=== PATIENT | female | born 1995 ===

== ENCOUNTER 2022-07-18 15:00 | Outpatient (CLI) | payer OTHER ==
[2022-07-19 18:32] LABS: BACTERIAL VAGINOSIS DNA POSITIVE (NEGATIVE); CANDIDA GLABRATA DNA NEGATIVE (NEGATIVE); CANDIDA GROUP DNA POSITIVE (NEGATIVE); CANDIDA KRUSEI DNA NEGATIVE (NEGATIVE); TRICHOMONAS VAGINALIS DNA NEGATIVE (NEGATIVE)
[2022-07-19 19:13] LABS: CHLAMYDIA TRACHOMATIS DNA NEGATIVE (NEGATIVE); NEISSERIA GONORRHOEAE DNA NEGATIVE (NEGATIVE)
== END 2022-07-18 23:45 | disposition home or self-care (01) ==
LOC: LAB.WC 15:00
PROVIDERS: ATTEND Obstetrics & Gynecology
DX: Z11.3 Encounter for screening for infections with a predominantly sexual mode of transmission (principal); N89.8 Other specified noninflammatory disorders of vagina
CPT/HCPCS: 81514; 87491; 87591; 87661; 87801

== ENCOUNTER 2022-07-26 11:12 | Outpatient (CLI) | payer OTHER ==
[2022-07-26 13:51] LABS: HCT - HEMATOCRIT 32.5 % (37.0-47.0); HGB - HEMOGLOBIN 10.8 g/dL (12.0-16.0); MEAN CORPUSCULAR HEMOGLOBIN 30.4 pg (27.0-31.0); MEAN CORPUSCULAR HGB CONC 33.2 g/dL (32.0-36.0); MEAN CORPUSCULAR VOLUME 91.5 fL (81.0-99.0); MEAN PLATELET VOLUME 9.1 fL (7.9-10.8); RED BLOOD COUNT 3.55 10^6/uL (4.20-5.40); RED CELL DISTRIBUTION WIDTH 12.7 % (12.0-15.0); WHITE BLOOD COUNT 7.9 x10^3/uL (4.8-10.8)
--- NOTE | 2022-07-27 08:35 | Ultrasound Report ---
PROCEDURE: OB F/U or Repeat INDICATIONS: SUPERVISION OF OUTSIDE/PRIOR DATING DATA: Last menstrual period (LMP): 12/02/2021. LMP-based estimated date of delivery (DOMI): 09/08/2022. First dating scan (date and location): 03/04/2022. Estimated date of delivery (DOMI) from first dating scan: 09/06/2022. The below data below was generated using the study generated DOMI of 09/06/2022 TECHNIQUE: Real-time scanning was performed of the fetus, with image documentation and biometric measurements. Endovaginal scanning: Not indicated COMPARISON: None. FINDINGS: General: A single living intrauterine gestation is present. Presentation: Cephalic Placenta: Placental position is posterior, without previa. Amniotic fluid index: 13.5 cm, normal for gestational age. heart rate: 137 beats per minute. Maternal cervical canal: Not evaluated. biometrics: Biparietal diameter: 9.0 cm, 36 weeks, 2 days. Head circumference: 31.4 cm, 35 weeks, 1 day. Abdominal circumference: 30.2 cm, 34 weeks, 1 day. Femur length: 6.0 cm, 31 weeks, 2 days. Estimated gestational age from initial scan: 34 weeks, 0 day. Composite gestational age from present scan: 34 weeks, 2 days. Estimated weight and percentile: 2242 g, 32.7%. Measurement variability in biometric dating: +/- 10 days from 12-20 weeks gestation, +/- 2 weeks from 20-30 weeks gestation, +/- 3 weeks at 30 weeks gestation or more. Other: chest, stomach, bilateral kidneys and urinary bladder are visualized and are within norm al limits. facial profile is visualized and is within normal limits. hands and fingers ar e also seen and are within normal limits. IMPRESSION: 1. Single live intrauterine gestation with fetus in cephalic presentation. heart rate is 137 bp m. Normal amount of amniotic fluid. ALIZA equals 13.5 cm. Normal growth. Estimated weight i s at 32.7%. 2. facial profile and bilateral hands and fingers are visualized and are within normal limits. Reviewed by: Broderick Isaac MD on 07/27/2022 8:34 AM PST Approved by: Broderick Isaac MD on 07/27/2022 8:34 AM PST Station ID: [id number]
== END 2022-07-26 11:13 | disposition home or self-care (01) ==
LOC: DI 11:12
PROVIDERS: ATTEND Obstetrics & Gynecology
DX: Z34.93 Encounter for supervision of normal pregnancy, unspecified, third trimester (principal)
CPT/HCPCS: 36415; 82950; 85027; 86850

== ENCOUNTER 2022-08-11 10:15 | Outpatient (CLI) | payer OTHER | END 2022-08-11 23:59 | disposition home or self-care (01) | LOC: LAB.WC 10:15 | PROVIDERS: ATTEND Obstetrics & Gynecology | DX: Z36.85 Encounter for antenatal screening for Streptococcus B (principal) | CPT/HCPCS: 87797 ==

== ENCOUNTER 2022-08-24 08:00 | Outpatient (CLI) | payer OTHER ==
[2022-08-24 22:24] LABS: BACTERIAL VAGINOSIS DNA NEGATIVE (NEGATIVE); CANDIDA GLABRATA DNA NEGATIVE (NEGATIVE); CANDIDA GROUP DNA POSITIVE (NEGATIVE); CANDIDA KRUSEI DNA NEGATIVE (NEGATIVE); TRICHOMONAS VAGINALIS DNA NEGATIVE (NEGATIVE)
== END 2022-08-24 23:59 | disposition home or self-care (01) ==
LOC: LAB.WC 08:00
PROVIDERS: ATTEND Obstetrics & Gynecology
DX: L29.8 Other pruritus (principal)
CPT/HCPCS: 81514

== ENCOUNTER 2022-09-01 12:30 | Inpatient (IN) | payer OTHER ==
[2022-09-01] MEDS ORDERED: LACTATED RINGERS 1,000 ML IV ONE (12:45)
[2022-09-01] MEDS ORDERED: LACTATED RINGERS 1,000 ML ONE ×2 (12:46→16:40)
[2022-09-01 13:15] LABS: BASOPHILS % (AUTO) 0.3 %; EOSINOPHILS % (AUTO) 0.3 %; HCT - HEMATOCRIT 39.3 % (37.0-47.0); HGB - HEMOGLOBIN 13.3 g/dL (12.0-16.0); LYMPHOCYTES # (AUTO) 1.7 10^3/uL (1.5-3.5); LYMPHOCYTES % (AUTO) 14.3 %; MEAN CORPUSCULAR HEMOGLOBIN 30.7 pg (27.0-31.0); MEAN CORPUSCULAR HGB CONC 33.8 g/dL (32.0-36.0); MEAN CORPUSCULAR VOLUME 90.8 fL (81.0-99.0); MEAN PLATELET VOLUME 9.8 fL (7.9-10.8); MONOCYTES # (AUTO) 0.9 10^3/uL (0.0-1.0); MONOCYTES % (AUTO) 7.4 %; NEUTROPHILS # (AUTO) 9.2 10^3/uL (1.5-6.6); NEUTROPHILS % (AUTO) 77.1 %; PLT - PLATELET COUNT 291 10^3/uL (130-450); RED BLOOD COUNT 4.33 10^6/uL (4.20-5.40); WHITE BLOOD COUNT 11.9 x10^3/uL (4.8-10.8)
[2022-09-01] MEDS ORDERED: lidocaine 1% 20 ML MDV ID PRN (13:53)
[2022-09-01] MEDS ORDERED: TERBUTALINE 1 MG/ML VIAL SUBQ PRN (13:53)
[2022-09-01] MEDS ORDERED: OXYTOCIN 10 UNIT/ML VIAL IM PRN (13:53)
[2022-09-01] MEDS ORDERED: CARBOPROST TROMETHAMINE 250 MCG/ML AMP IM PRN (13:53)
[2022-09-01] MEDS ORDERED: METHYLERGONOVINE 0.2 MG/ML VIAL IM PRN (13:53)
[2022-09-01] MEDS ORDERED: miSOPROStoL 200 MCG TABLET BC PRN (13:53)
[2022-09-01] MEDS ORDERED: miSOPROStoL 200 MCG TABLET PR PRN (13:53)
[2022-09-01] MEDS ORDERED: SODIUM CHLORIDE FLUSH 0.9% 10 ML SYRINGE IVP PRN (13:53)
[2022-09-01] MEDS ORDERED: TRANEXAMIC ACID IN NACL 1,000 MG/100 ML BAG IV PRN (13:53)
[2022-09-01] MEDS ORDERED: fentaNYL 100 MCG/2 ML VIAL IVP PRN (13:53)
[2022-09-01] MEDS ORDERED: AMPICILLIN 2 GM in SODIUM CHLORIDE 0.9% MINIBAG 100 ML IV ONE (13:53)
[2022-09-01] MEDS ORDERED: OXYTOCIN/SODIUM CHLORIDE 500 ML IV PRN (13:53)
[2022-09-01] MEDS ORDERED: SODIUM CHLORIDE FLUSH 0.9% 10 ML SYRINGE IVP SCH (14:00)
[2022-09-01] MEDS ORDERED: ROPIVACAINE 0.2% 200 MG/100 ML BAG EP ONE (14:19)
[2022-09-01] MEDS ORDERED: ePHEDrine 50 MG/ML VIAL IVP PRN (15:09)
[2022-09-01] MEDS ORDERED: NALOXONE 0.4 MG/ML VIAL IVP PRN (15:09)
[2022-09-01] MEDS ORDERED: ROPIVACAINE 0.2% 200 MG/100 ML BAG EP PRN (15:09)
--- NOTE | 2022-09-01 15:09 | ANESTHESIA ---
Pre-Anesthesia VS, & Labs - Diagnosis active labor - Procedure vaginal delivery - NPO Other (clear liquids) - Is Patient ?: Yes - Lab Results Current Lab Results: Laboratory Tests 09/01/22 12:45: Blood Type A POSITIVE, Antibody Screen NEGATIVE 09/01/22 12:45: WBC 11.9 H, RBC 4.33, Hgb 13.3, Hct 39.3, MCV 90.8, MCH 30.7, MCHC 33.8, RDW 14.0, Plt Count 291, MPV 9.8, Neut # (Auto) 9.2 H, Lymph # (Auto) 1.7, [place] # (Auto) 0.9, Eos # (Auto) 0.0, Baso # (Auto) 0.0, Absolute Nucleated RBC 0.00, Nucleated RBC % 0.0 Lab results reviewed: Yes Fish Bones: 09/01/22 12:45 Home Medications and Allergies Active Medications Carboprost Tromethamine (Carboprost Tromethamine 250 Mcg/Ml Amp) 250 mcg IM .ONCE PRN PRN Reason: Hemorrhage Fentanyl (Fentanyl 100 Mcg/2 Ml Vial) 50 mcg IVP Q1H PRN PRN Reason: Severe Pain (score 7-10) Oxytocin/Sodium Chloride (Pitocin/Sodium Chloride) 500 mls @ 999 mls/hr IV PRN PRN; Protocol PRN Reason: POST- HEMORR PREVENTION Tranexamic Acid (Tranexamic 1,000 Mg/100ml-Nacl) 1,000 mg in 100 mls @ 600 mls/hr IV Q30M PRN PRN Reason: EBL >1200mL and within 3hr Ampicillin Sodium 1 gm/ Sodium (Chloride) 100 mls @ 200 mls/hr IV Q4H JOYCE Lidocaine HCl (Lidocaine 1% 20 Ml Mdv) 20 ml ID .ONCE PRN PRN Reason: PERINEAL REPAIR Stop: 09/04/22 13:53 Methylergonovine Maleate (Methylergonovine 0.2 Mg/Ml Vial) 0.2 mg IM .ONCE PRN PRN Reason: Hemorrhage Misoprostol (Misoprostol 200 Mcg Tablet) 600 mcg BC .ONCE PRN PRN Reason: Hemorrhage Misoprostol (Misoprostol 200 Mcg Tablet) 800 mcg [place] .ONCE PRN PRN Reason: Hemorrhage Oxytocin (Oxytocin 10 Unit/Ml Vial) 10 unit IM .ONCE PRN PRN Reason: Step One if no IV access. Sodium Chloride (Sodium Chloride Flush 0.9% 10 Ml Syringe) 10 ml IVP PRN PRN PRN Reason: NEEDED PER PROVIDER ORDERS Sodium Chloride (Sodium Chloride Flush 0.9% 10 Ml Syringe) 10 ml IVP Q8H JOYCE Terbutaline Sulfate (Terbutaline 1 Mg/Ml Vial) 0.25 mg SUBQ .ONCE PRN PRN Reason: Tachystole Allergies/Adverse Reactions: Allergies Allergy/AdvReac Type Severity Reaction Status Date / Time No Known Drug Allergies Allergy Verified 09/01/22 12:44 Anes History & Medical History - Anesthetic History Family history of Anesthesia Complications: Denies Family history of Malignant Hyperthermia: Denies - Medical History Cardiovascular: reports: None Pulmonary: reports: None Gastrointestinal: reports: None Urinary: reports: None Neuro: reports: None Musculoskeletal: reports: None Endocrine/Autoimmune: reports: None Blood Disorders: reports: None Skin: reports: None Smoking Status: Never smoker Psychosocial: reports: No issues indicated History of Cancer?: No Exam General: Alert, Oriented x3, Cooperative, No acute distress Dental: WNL Mouth Openin Fingerbreadth Neck Mobility: Normal Mallampati classification: II Thyromental Distance: 4-6 cm Plan Anesthesia Type: Epidural Consent for Procedure(s) Verified and Reviewed: Yes Code Status: Attempt Resuscitation ASA classification: 2-Mild systemic disease Is this case an emergency?: No
--- NOTE | 2022-09-01 16:33 | HISTORY & PHYSICAL EXAMINATION ---
Admit History - Visit Reason Visit Reason: Contractions - : 1 Care: positive: [facility] Risk/History: positive: None Complications This : positive: None Smoking Status: Never smoker - Mother's Labs Mother's Blood Type: positive: A Mother's RH: positive: Positive GBS: positive: Group B Strep Positive Rubella Status: positive: Immune - Other Maternal History Other Maternal History: Med hx: hepatitis Surg: Denies Fam: noncontributory Social: denies danielle Meds/Allgy - Allergies Allergies/Adverse Reactions: Allergies Allergy/AdvReac Type Severity Reaction Status Date / Time No Known Drug Allergies Allergy Verified 09/01/22 12:44 Review of Systems - All Other Systems All Other Systems: reports: Reviewed and negative Physical - Abdominal Exam Vital Signs: VSS 120/89 Contraction Intensity: positive: Moderate Uterine Resting Tone: positive: Soft - Monitoring Heart Rate Baseline: 140 Strip Review: positive: Category I - Presentation Presentation: positive: Vertex (Placenta posterior, EFW 3000g) - Vaginal Exam Membranes: positive: Membranes intact Dilation (in cm): 6 Effacement (%): 100 Station: positive: -2 Cervical Position: positive: Midposition Plan for Labor - Plan For Labor I expect patient to be DC'd or transferred within 96 hours.: Yes Plan for Labor: 27yo at 39w by LMP consistent with 9w US admitted in active labor - Admit - TS, CBC - Epidural prn - Anticipate
[2022-09-01] MEDS ORDERED: AMPICILLIN 1 GM in SODIUM CHLORIDE 0.9% MINIBAG 100 ML IV SCH (18:00)
[2022-09-01] MEDS ORDERED: WITCH HAZEL/GLYCERIN 1 PAD TOP PRN (18:39)
[2022-09-01] MEDS ORDERED: HYDROCORTISONE 1% CREAM 28 GM TUBE PR PRN (18:39)
--- NOTE | 2022-09-01 18:47 | DELIVERY NOTE ---
Delivery Note - Labor Labor: positive: Spontaneous - Delivery Method Delivery Method: positive: Spontaneous vaginal delivery - Presentation Presentation: positive: Vertex, KENNY - right occiput anterior - Nuchal Cord Nuchal Cord: positive: Present (x1, reduced after delivery) - Anesthetic Anesthetic Type: - Amniotic Fluid Description Amniotic Fluid Description: positive: Clear - Episiotomy Type Episiotomy Type: positive: None - Laceration Laceration: positive: 2nd degree - Suture Suture Type: positive: Vicryl Suture Size: positive: 3-0 - Delivery Outcome Delivery Outcome: positive: Livebirth - [place] : positive: Placed in direct skin contact with mother, Bulb syringe, Stimulated, Warmed [place] sex: positive: Male - Cord Cord: positive: 3 vessels - Placenta Placenta: positive: Intact, Spontaneous - Estimated Blood Loss Estimated Blood Loss (in cc): 200 - Post Delivery Events Post Delivery Events: positive: No post delivery events - Delivery Comments (Free Text/Narrative) Delivery Comments (Free Text/Narrative): /+1. Maternal pushing with good efforts. Head delivered. Nuchal cord x1 noted. Body delivered with ease and nuchal cord then reduced. placed on mother's abdomen. Delayed cord clamping. Fundus firm. Placenta delivered spontaneously and intact, 3vc. Vagina and perineum inspected- 2nd degree vaginal laceration noted. Repaired in usual fashion with 3-0 vicryl. Hemostasis. Family bonding at bedside.
[2022-09-01] MEDS ORDERED: LACTATED RINGERS 1,000 ML IV SCH (19:00)
[2022-09-01] MEDS: IBUPROFEN 800 MG TABLET PO SCH (19:58)
[2022-09-01] MEDS: ACETAMINOPHEN 500 MG TABLET PO SCH (19:58)
[2022-09-01] MEDS: DOCUSATE SODIUM 100 MG CAPSULE PO SCH (21:59)
--- NOTE | 2022-09-01 22:22 | PROCEDURE REPORT ---
- HPI Diagnosis/Indication for NST: Other (Labor) Current EDU 09/08/22 Gestation 39 Weeks and 0 Days 1 Para 0 Vital Signs Temperature 98.1 F 09/01/22 12:36 Temperature 97.9 F 09/01/22 20:09 Heart Rate 91 09/01/22 20:24 Respiratory Rate 16 09/01/22 20:09 Blood Pressure 98/56 L 09/01/22 20:24 O2 Saturation 100 09/01/22 20:09 If not protocol: Oxygen Flow, liters/minute - NST Procedure NST Procedure Start Date 09/01/22 Start Time 12:40 Patient States Movement Yes EFM: 140, moderate variability, positive 15x15 accelerations, no decelerations Saxis: contractions q2-4 NST reactive Performed and read 09/01/22 - Results and Plan Findings/Impression: 27yo at 39 presented with painful contractions. Initial exam 4cm. Rechecked and 6cm. She was then admitted for active labor at term, uncomplicated. See H&P.
[2022-09-02] MEDS: IBUPROFEN 800 MG TABLET PO SCH ×3 (02:19→19:53)
[2022-09-02] MEDS: ACETAMINOPHEN 500 MG TABLET PO SCH ×3 (04:00→20:59)
--- NOTE | 2022-09-02 10:57 | PROVIDER PROGRESS NOTE ---
Subjective - Prog Note Date Prog Note Date: 09/02/22 - Subjective Subjective: Subjective Patient reports she is doing well. Lochia appropriate. Denies heavy bleeding. Ambulating. Pelvic and abdominal pain well-controlled. Tolerating oral intake. Diet: Regular. Voiding without difficulty. Passing flatus. Denies BM. Patient is bonding with baby in room Breast feeding going well. Bottle feeding at this time. Denies feeling lightheaded, dizzy or excessively fatigued. Control: Unsure Objective General: Alert, oriented, no apparent distress. Cardiovascular: Regular rate. Regular rhythm. Lungs: No increased work of breathing. Abdomen: Uterus firm. Below umbilicus. No guarding or rebound. Extremities: No pain on palpation. No cords palpated. Distal pulses intact. Assessment and Plan day 1. -Routine care -Anticipate discharge tomorrow Objective - Vital Signs/Intake & Output Vital Signs: Vital Signs x48h Temp Pulse Resp BP Pulse Ox 09/02/22 08:20 98.5 F 92 14 108/55 L 09/02/22 04:11 97.9 F 56 L 16 115/73 100 Intake & Output: Intake & Output 08/30/22 08/31/22 09/01/22 09/02/22 23:59 23:59 23:59 23:59 Intake Total 1600 Output Total 830 750 Balance 770 -750 - Lab Results Fish Bones: 09/01/22 12:45 Other Labs: Lab Results x24hrs 09/01/22 09/01/22 Range/Units 12:45 12:45 WBC 11.9 H (4.8-10.8) x10^3/uL RBC 4.33 (4.20-5.40) 10^6/uL Hgb 13.3 (12.0-16.0) g/dL Hct 39.3 (37.0-47.0) % MCV 90.8 (81.0-99.0) fL MCH 30.7 (27.0-31.0) pg MCHC 33.8 (32.0-36.0) g/dL RDW 14.0 (12.0-15.0) % Plt Count 291 (130-450) 10^3/uL MPV 9.8 (7.9-10.8) fL Neut # (Auto) 9.2 H (1.5-6.6) 10^3/uL Lymph # (Auto) 1.7 (1.5-3.5) 10^3/uL [place] # (Auto) 0.9 (0.0-1.0) 10^3/uL Eos # (Auto) 0.0 (0.0-0.7) 10^3/uL Baso # (Auto) 0.0 (0.0-0.1) 10^3/uL Absolute Nucleated RBC 0.00 x10^3/uL Nucleated RBC % 0.0 /100WBC Blood Type A POSITIVE Antibody Screen NEGATIVE
[2022-09-02] MEDS: DOCUSATE SODIUM 100 MG CAPSULE PO SCH (14:15)
[2022-09-03] MEDS: DOCUSATE SODIUM 100 MG CAPSULE PO SCH ×2 (01:58→08:34)
[2022-09-03] MEDS: IBUPROFEN 800 MG TABLET PO SCH ×2 (01:58→08:34)
[2022-09-03 05:06] VITALS: BP 112/62
[2022-09-03] MEDS: ACETAMINOPHEN 500 MG TABLET PO SCH (05:09)
--- NOTE | 2022-09-03 09:17 | Discharge Plan ---
Discharge Plan Problem Reviewed?: Yes Disposition: Home, Self Care Condition: Good Prescriptions: Ibuprofen [Motrin] 600 mg PO Q6H PRN #30 tab PRN Reason: Pain Diet: Regular Activity Restrictions: Additional Comments Instruction Topics: Vaginal After No Smoking: If you smoke, Please STOP! Call for help. Follow-up with: Ila Sommers DO [Provider Admit Priv/Credential] -
--- NOTE | 2022-09-03 09:18 | DISCHARGE SUMMARY ---
Discharge Summary Admit Date: 09/01/22 Discharge Date: 09/03/22 Discharging Provider: Gene Mariano MD Code Status: Attempt Resuscitation Condition at Discharge: Good Discharge Disposition: 01 Home, Self Care - DIAGNOSES Admission Diagnoses: 39 weeks gestation Term labor Discharge Diagnoses with Status of Each Condition: 39 weeks gestation Term labor Delivery of live [place] - HPI History of Present Illness: Subjective Patient reports she is doing well. Bleeding normal. Ambulating without issue. Pelvic and abdominal pain well-controlled. Tolerating oral intake. Diet: Regular. Voiding without difficulty. Passing flatus. Denies BM. Patient is bonding with baby in room Breast feeding going well. Denies feeling lightheaded, dizzy or excessively fatigued. Control: Unsure Objective General: Alert, oriented, no apparent distress. Cardiovascular: Regular rate. Regular rhythm. Lungs: No increased work of breathing. Abdomen: Uterus firm. Below umbilicus. No guarding or rebound. Extremities: No pain on palpation. No cords palpated. Distal pulses intact. - HOSPITAL COURSE Hospital Course: Patient presented at 39 weeks gestation in term labor. Had spontaneous rupture of membranes. Uncomplicated delivery of term . course was unremarkable and was discharged on day 2 with her . - ALLERGIES Allergies/Adverse Reactions: Allergies Allergy/AdvReac Type Severity Reaction Status Date / Time No Known Drug Allergies Allergy Verified 09/01/22 12:44 - MEDICATIONS Home Medications: Ambulatory Orders Medication Instructions Recorded Confirmed Docusate Sodium 100Mg Capsule 100 mg PO BID cap 09/03/22 [Colace 100Mg Capsule] Ibuprofen [Motrin] 600 mg PO Q6H PRN #30 tab 09/03/22 - LABS Result Diagrams: 09/01/22 12:45 - FOLLOW UP Follow Up: With [facility] in 1-2 weeks. - TIME SPENT Time Spent in Discharge (Minutes): 20
--- NOTE | 2022-09-03 15:26 | Labor Flowsheet ---
Labor Flowsheet Datetime Report Generated by CPN: 09/03/2022 15:26 Datetime: 09/03/2022 07:41 VITAL SIGNS NBP Sys/Rabia/Mean (mmHg): 108 : 54 : 66 Pulse: 67 Datetime: 09/01/2022 19:40 SpO2 (%): 100 Datetime: 09/01/2022 18:59 Membranes Ruptured Date/Time: 09/01/2022 15:44 Amniotic Fluid Color: Clear Amniotic Fluid Amount: Small Amniotic Fluid Odor: None Datetime: 09/01/2022 18:31 Stage of : Recovery Datetime: 09/01/2022 18:29 ANESTHESIA Anesthesia Plans: Epidural Anesthesia Comments: discontinued Datetime: 09/01/2022 18:17 MEDICATIONS Pitocin (milliunits): Started @ full Datetime: 09/01/2022 18:09 STAGE 2 Pushing: Coached on Pushing Pushing Position: Pushing with Contractions Pushing Progress: Perineal Bulging; Rectal Bulging; Molding Noted; Caput Noted; Presenting Part Vis ible; with Pushing; Pushing Effectively with Contractions Datetime: 09/01/2022 18:01 LaborFlag: Labor Datetime: 09/01/2022 18:00 UTERINE ACTIVITY Monitor Mode: External Frequency (min): 1-4 Quality: Strong Duration (sec): 40-60 Pattern: Normal: <= 5 Contractions in 10 Minutes Resting Tone (Palpate): Relaxed FHR Baseline Rate : 140 Variability: Moderate 6-25 bpm Accelerations: 15X15 Decelerations: Late Actions for Decelerations: Other Category: Category II Comments: pushing Datetime: 09/01/2022 17:45 ASSESSMENT A Monitor Mode: Telemetry Datetime: 09/01/2022 17:15 FHR Baseline Changes: No Baseline Change Datetime: 09/01/2022 17:00 Stage 2 Comments: started Datetime: 09/01/2022 16:55 VAGINAL EXAM Dilatation (cm): 10.0 Effacement (%): 100 Station: 1 Exam by: [place] Datetime: 09/01/2022 16:42 Patient Position/Activity: Right Lateral Datetime: 09/01/2022 15:44 Membrane Status: Ruptured Membranes Rupture Method: Artificial Datetime: 09/01/2022 15:43 Provider Reviewed Strip: Yes COMMUNICATION Communication: Provider at Bedside Datetime: 09/01/2022 15:39 Communication Comments: Provider to be in to see pt Datetime: 09/01/2022 15:37 Cervix, Position: Midposition Datetime: 09/01/2022 15:20 Temperature (C): 36.7 Datetime: 09/01/2022 15:15 Monitor Interventions for UA: [employer] Adjusted Anesthesia Level Check: T8- Ribs Datetime: 09/01/2022 14:54 Epidural Procedure: Loading Dose Datetime: 09/01/2022 14:48 I/O Interventions: Vargas Cath Inserted Datetime: 09/01/2022 14:41 Epidural Positioning: Sitting Datetime: 09/01/2022 14:30 Contraction Comments: unable to assess Datetime: 09/01/2022 14:25 Antibiotics: Ampicillin IV 2 Gm PATIENT CARE IV/Blood Work: IV Bolus Started
== END 2022-09-03 13:00 | disposition home or self-care (01) | DRG 807 ==
LOC: WFO 12:30 → FBP 12:33 → WFO 13:52 → FBP 13:53
PROVIDERS: ADMIT Obstetrics & Gynecology; ATTEND Obstetrics & Gynecology
PROC: 10E0XZZ Delivery of Products of Conception, External Approach (ICD-10-PCS; principal; 2022-09-01)
PROC: 0KQM0ZZ Repair Perineum Muscle, Open Approach (ICD-10-PCS; 2022-09-01)
PROC: 4A0HXCZ Measurement of Products of Conception, Cardiac Rate, External Approach (ICD-10-PCS; 2022-09-01)
DX: O70.1 Second degree perineal laceration during delivery (principal); Z37.0 Single live birth; O99.824 Streptococcus B carrier state complicating childbirth; Z3A.39 39 weeks gestation of pregnancy; Z86.19 Personal history of other infectious and parasitic diseases; O69.81X0 Labor and delivery complicated by cord around neck, without compression, not applicable or unspecified
CPT/HCPCS: 36415; 85025; 86850; 86900; 86901; 99215; A9270; J7120; 59025; 84112

== ENCOUNTER 2023-10-13 08:00 | Outpatient (CLI) | payer OTHER ==
[2023-10-13 16:48] LABS: BILIRUBIN,URINE NEGATIVE (NEGATIVE); GLUCOSE, URINE (UA) NEGATIVE (NEGATIVE); KETONES,URINE (UA) NEGATIVE (NEGATIVE); LEUKOCYTE ESTERASE, URINE TRACE (NEGATIVE); NITRITE,URINE POSITIVE (NEGATIVE); OCCULT BLOOD,URINE NEGATIVE (NEGATIVE); PROTEIN,URINE NEGATIVE (NEGATIVE); UROBILINOGEN,URINE 0.2 (NORMAL) E.U./dL (NORMAL)
[2023-10-13 16:57] LABS: AMORPHOUS SEDIMENT,UR Moderate /LPF; BACTERIA,URINE Few /HPF (None Seen); CLARITY,URINE CLOUDY (CLEAR); RBC,URINE 0-5 /HPF (0-5); SQUAMOUS EPITHELIAL CELL,UR RARE Squamous (<= Few); WBC,URINE 0-3 /HPF (0-5)
[2023-10-13 22:38] LABS: BACTERIAL VAGINOSIS DNA POSITIVE (NEGATIVE); CANDIDA GLABRATA DNA NEGATIVE (NEGATIVE); CANDIDA GROUP DNA POSITIVE (NEGATIVE); CANDIDA KRUSEI DNA NEGATIVE (NEGATIVE); TRICHOMONAS VAGINALIS DNA NEGATIVE (NEGATIVE)
== END 2023-10-13 23:59 | disposition home or self-care (01) ==
LOC: LAB.WC 08:00
PROVIDERS: ATTEND Obstetrics & Gynecology
DX: O99.891 Other specified diseases and conditions complicating pregnancy (principal); N89.8 Other specified noninflammatory disorders of vagina
CPT/HCPCS: 81001; 81514; 87086

== ENCOUNTER 2023-11-06 17:05 | Outpatient (CLI) | payer OTHER ==
--- NOTE | 2023-11-07 12:34 | Ultrasound Report ---
PROCEDURE: OB 1st Trimester w/TV INDICATIONS: POSITIVE TEST OUTSIDE/PRIOR DATING DATA: Last menstrual period (LMP): 08/18/2023. LMP-based estimated date of delivery (DOMI): 05/24/2024. First dating scan (date and location): Today's exam. Estimated date of delivery (DOMI) from first dating scan: 06/03/2024. TECHNIQUE: Real-time scanning was performed of the fetus and maternal pelvic organs, with image documentation. Endovaginal scanning was also performed to better visualize the fetus and maternal ovaries. COMPARISON: None. FINDINGS: Intrauterine gestational sac present. Embryo: Present, measuring 3.1 cm, corresponding to 10 weeks 0 days Heart rate: 171 bpm. Other: No perigestational fluid collection. Measurement variability in dating: +/- 4 weeks by LMP, +/- 7 days by mean sac diameter (use before 6 weeks gestation if crown-rump length not able to be measured), +/- 5 days by crown-rump length (6-12 weeks gestation). Maternal organs: Ovaries appear within normal limits. IMPRESSION: Single living intrauterine at 10 weeks 0 days, DOMI of 06/03/2024. Reviewed by: Hill Ulloa MD on 11/07/2023 12:33 PM PDT Approved by: Hill Ulloa MD on 11/07/2023 12:33 PM PDT Station ID: [id number]
== END 2023-11-06 17:06 | disposition home or self-care (01) ==
LOC: DI 17:05
PROVIDERS: ATTEND Obstetrics & Gynecology
DX: Z34.91 Encounter for supervision of normal pregnancy, unspecified, first trimester (principal)

== ENCOUNTER 2023-11-16 08:00 | Outpatient (CLI) | payer OTHER ==
[2023-11-16 23:02] LABS: CHLAMYDIA TRACHOMATIS DNA NEGATIVE (NEGATIVE); NEISSERIA GONORRHOEAE DNA NEGATIVE (NEGATIVE); TRICHOMONAS VAGINALIS DNA NEGATIVE (NEGATIVE)
== END 2023-11-16 23:59 | disposition home or self-care (01) ==
LOC: LAB.WC 08:00
PROVIDERS: ATTEND Obstetrics & Gynecology
DX: Z34.90 Encounter for supervision of normal pregnancy, unspecified, unspecified trimester (principal)
CPT/HCPCS: 36415; 85025; 86592; 86762; 86787; 86803; 86850; 86900; 86901; 87340; 87389; 87491; 87591; 87661

== ENCOUNTER 2023-11-16 15:27 | Outpatient (CLI) | payer OTHER ==
[2023-11-16 15:54] LABS: BASOPHILS % (AUTO) 0.3 %; EOSINOPHILS # (AUTO) 0.1 10^3/uL (0.0-0.7); EOSINOPHILS % (AUTO) 0.9 %; HCT - HEMATOCRIT 32.6 % (37.0-47.0); HGB - HEMOGLOBIN 11.4 g/dL (12.0-16.0); LYMPHOCYTES # (AUTO) 1.9 10^3/uL (1.5-3.5); MEAN CORPUSCULAR HEMOGLOBIN 31.2 pg (27.0-31.0); MEAN CORPUSCULAR VOLUME 89.3 fL (81.0-99.0); MEAN PLATELET VOLUME 9.5 fL (7.9-10.8); MONOCYTES # (AUTO) 0.4 10^3/uL (0.0-1.0); MONOCYTES % (AUTO) 5.8 %; NEUTROPHILS # (AUTO) 4.3 10^3/uL (1.5-6.6); NEUTROPHILS % (AUTO) 63.7 %; PLT - PLATELET COUNT 267 10^3/uL (130-450); RED BLOOD COUNT 3.65 10^6/uL (4.20-5.40); RED CELL DISTRIBUTION WIDTH 12.5 % (12.0-15.0); WHITE BLOOD COUNT 6.7 x10^3/uL (4.8-10.8)
[2023-11-17 03:10] LABS: HBsAG SCREEN Negative (Negative); HIV SCREEN 4TH GENERATION Non Reactive (Non Reactive)
[2023-11-17 04:09] LABS: RPR Non Reactive (Non Reactive)
[2023-11-17 09:10] LABS: VARICELLA-ZOSTER AB IGG 878 index (Immune >165)
[2023-11-18 01:09] LABS: HCV AB Non Reactive (Non Reactive)
== END 2023-11-16 15:28 | disposition home or self-care (01) ==
LOC: LAB 15:27
PROVIDERS: ATTEND Obstetrics & Gynecology
DX: Z34.90 Encounter for supervision of normal pregnancy, unspecified, unspecified trimester (principal)
CPT/HCPCS: 36415; 85025; 86592; 86762; 86787; 86803; 86850; 86900; 86901; 87340; 87389

== ENCOUNTER 2024-01-30 15:55 | Outpatient (CLI) | payer OTHER ==
--- NOTE | 2024-01-31 14:09 | Ultrasound Report ---
PROCEDURE: OB Anatomy Scan INDICATIONS: SUPERVISION OF OUTSIDE/PRIOR DATING DATA: Last menstrual period (LMP): 08/18/2023. LMP-based estimated date of delivery (DOMI): 05/24/2024. First dating scan (date and location): 11/06/2023. Estimated date of delivery (DOMI) from first dating scan: 06/03/2024. The below data below was generated using the working DOMI of 06/03/2024 TECHNIQUE: Real-time scanning was performed of the fetus, with image documentation and biometric measurements. Endovaginal scanning: Not performed. COMPARISON: 11/06/2023 FINDINGS: General: A single living intrauterine gestation is present. Presentation: Variable Placenta: Placental position is posterior, without previa. Amniotic fluid index: 18.4 cm, 81.6% and is within normal limits for gestational age. heart rate: 143 beats per minute. Maternal cervical canal: Closed and measures 4.83 cm long; normal length is 2.5 cm or more. biometrics: Biparietal diameter: 5.23 cm, 21 weeks, 6 days, 36.1% Head circumference: 19.69 cm, 21 weeks, 6 days, 27.2% Abdominal circumference: 17.04 cm, 22 weeks, 0 day, 37.8% Femur length: 3.58 cm, 21 weeks, 2 days, 15.9% Estimated gestational age from initial scan: 22 weeks, 1 day Composite gestational age from present scan: 22 weeks, 0 day Estimated weight and percentile: 446.6 g, 24.4% Measurement variability in biometric dating: +/- 10 days from 12-20 weeks gestation, +/- 2 weeks from 20-30 weeks gestation, +/- 3 weeks at 30 weeks gestation or later. Anatomic survey: Neuro: Ventricles are normal at less than 10 mm. Cisterna magna is normal at 3-11 mm. Cerebellum i s normal in size and morphology. Nuchal skin fold: Normal at less than 6 mm between 14 and 20 weeks gestational age. Face: Nose and lips, facial profile are normal. Spine: No evidence for spina bifida. Heart: 4-chambered heart is present, with normal ventricular outflow tracts. Diaphragm: Diaphragm is intact. Stomach: Left-sided stomach is present. Kidneys: No hydronephrosis. Normal is less than 5 mm in 2nd trimester, less than 7 mm in 3rd trimester. Cord: 3 vessel cord has orthotopic insertion. Bladder: Normal in size. Extremities: All 4 extremities are visualized. IMPRESSION: 1. Single live intrauterine gestation with fetus in variable presentation. heart rate is 143 bp m. Normal ALIZA at 18.4 cm. Normal growth. Estimated weight is at 24.4%. 2. Normal anatomic survey. Reviewed by: Broderick Quarles MD on 01/31/2024 2:07 PM PDT Approved by: Broderick Quarles MD on 01/31/2024 2:07 PM PDT Station ID: [id number]
== END 2024-01-30 15:56 | disposition home or self-care (01) ==
LOC: DI 15:55
PROVIDERS: ATTEND Obstetrics & Gynecology
DX: Z34.92 Encounter for supervision of normal pregnancy, unspecified, second trimester (principal)

== ENCOUNTER 2024-05-29 06:55 | Inpatient (IN) ==
[2024-05-29] MEDS ORDERED: METHYLERGONOVINE 0.2 MG/ML VIAL IM PRN ×2 (07:15→07:16)
[2024-05-29] MEDS ORDERED: TERBUTALINE 1 MG/ML VIAL SUBQ PRN ×2 (07:15→07:16)
[2024-05-29] MEDS ORDERED: lidocaine 1% 20 ML MDV ID PRN ×2 (07:15→07:16)
[2024-05-29] MEDS ORDERED: OXYTOCIN/SODIUM CHLORIDE 500 ML IV PRN ×3 (07:15→07:16)
[2024-05-29] MEDS ORDERED: OXYTOCIN 10 UNIT/ML VIAL IM PRN ×2 (07:15→07:16)
[2024-05-29] MEDS ORDERED: miSOPROStoL 200 MCG TABLET BC PRN ×3 (07:15→07:16)
[2024-05-29] MEDS ORDERED: miSOPROStoL 200 MCG TABLET PR PRN ×3 (07:15→07:16)
[2024-05-29] MEDS ORDERED: fentaNYL 100 MCG/2 ML VIAL IVP PRN ×2 (07:15→07:16)
[2024-05-29] MEDS ORDERED: LACTATED RINGERS 1,000 ML IV PRN ×3 (07:15→07:16)
[2024-05-29] MEDS ORDERED: SODIUM CHLORIDE FLUSH 0.9% 10 ML SYRINGE IVP PRN ×2 (07:15→07:16)
[2024-05-29] MEDS ORDERED: TRANEXAMIC ACID IN NACL 1,000 MG/100 ML BAG IV PRN ×2 (07:15→07:16)
[2024-05-29] MEDS ORDERED: LABETALOL 20 MG/4 ML SYRINGE IVP PRN ×5 (07:16→10:39)
[2024-05-29] MEDS ORDERED: ACETAMINOPHEN 500 MG TABLET PO PRN (07:16)
[2024-05-29] MEDS ORDERED: NIFEdipine 10 MG CAPSULE PO PRN ×2 (07:16→10:39)
[2024-05-29] MEDS ORDERED: hydrALAZINE INJ 20 MG/ML VIAL IVP PRN ×3 (07:16→10:39)
[2024-05-29] MEDS ORDERED: LIDOCAINE 2%-EPI 1:100000 20 ML MDV ONE (07:19)
[2024-05-29] MEDS ORDERED: ROPIVACAINE 0.2% 0 MG/0 ML BAG EP ONE (07:20)
[2024-05-29] MEDS ORDERED: BUPIVACAINE 0.5% PF 10 ML VIAL ONE (07:25)
--- NOTE | 2024-05-29 07:29 | HISTORY & PHYSICAL EXAMINATION ---
Admit History Visit Reason Visit Reason: Other (labor) Smoking Status: Never smoker Other Maternal History Other Maternal History: HPI: Carol is a 29 yo at 39w2d who is admitted for labor. Reports contractions starting around 1 AM. Thinks she had a gush of fluid as well. 5cm on admission on RN exam. Anesthesia placed spinal soon after patient's arrival. monitoring form, copied from record: 29 yo LMP: 08/18/23 DOMI by LMP: 05/24/24 US:11/06/23 @ 10w0d, DOMI by US 06/03/2024 Final DOMI: 06/03/2024 by 10wk US ASCUS/HPV+: Needs colposcopy . 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 Pre- Weight:119.2 BMI: 21.88 Blood type: A+ Antibody: negative CBC: PLT 267 HCT 32.6 HGB 11.4 RUB: immune VZV: immune HBsAg: negative HepC: N-R RPR/AB-EIA: N-R HIV: N-R PAP: 02/10/22 - NILM, HPV+ NOT 16/18; repeated at initial visit: ASCUS HPV+ GC/CT: 11/16/23 negative HSV:denies in self and partner Genetic testing: declines [ ] Covid: declined [ ] Flu: declined FAS: Orrdered 12/10 WNL Placenta: posterior 0 previa Cord:3VC ALIZA: WNL EFW: 446g 24%ile 50gm OGCT: ordered 02/04- hasn't done 04/15, ordered as random and hopefully will do today. 3HR GTT: TDAP:04/06/2024 Breast Pump: Has RX RSV - declined 04/15 3rd trimester H/H PLT- Hasn't done GBS: Delivery plan: Contraception:Likely ParaGard. PE: Vitals signs reviewed Gen: NAD CV: RRR Resp: non labored respirations Chest: non labored respirations Abd: gravid, non tender. Ext: no LE edema SVE: 8/90/0, cephalic, bag palpable, AROM with patient consent, light meconium noted. monitoring: FHTs: 130s bpm baseline, + accel, intermittent variable and late decelerations but overall reassuring [place]: 1-3 min, not tracing well FHTs: Cat 2 Labs: CBC reviewed, T&S and CMP pending A/P: 29 yo at 39w2d who is admitted for labor. - Labor - GBS neg - Rh + - Rubella immune - Varicella immune - Active labor, s/p AROM. Spinal in place and comfortable. Plan to start pushing once complete. Ankita Jimenez MD Meds/Allgy Home Medications Ambulatory Orders Medication Instructions Recorded Confirmed prenat.vits,yin,cju-pudt-nwiwz tab PO 03/27/24 05/20/24 Allergies Allergies Allergy/AdvReac Type Severity Reaction Status Date / Time No Known Drug Allergies Allergy Verified 05/20/24 14:19 [facility] Medical History Medical History (Updated 04/15/24 @ 14:05 by Irene August MD) Hx of cold sores Family History Family History (Updated 03/27/24 @ 08:44 by Najma Reid MA) Uncle Diabetes Social History Social History (Updated 04/01/24 @ 12:07 by Ila Arellano MA) Smoking Status: Never smoker Relationship: Spouse ETOH Use: None Substance Use: denies use Plan for Labor Plan For Labor I expect patient to be DC'd or transferred within 96 hours.: Yes
[2024-05-29] MEDS ORDERED: fentaNYL 100 MCG/2 ML VIAL IT ONE (07:38)
[2024-05-29 07:54] LABS: BASOPHILS % (AUTO) 0.3 %; EOSINOPHILS % (AUTO) 0.3 %; HCT - HEMATOCRIT 38.9 % (37.0-47.0); HGB - HEMOGLOBIN 13.2 g/dL (12.0-16.0); LYMPHOCYTES # (AUTO) 1.9 10^3/uL (1.5-3.5); LYMPHOCYTES % (AUTO) 18.4 %; MEAN CORPUSCULAR HEMOGLOBIN 31.3 pg (27.0-31.0); MEAN CORPUSCULAR HGB CONC 33.9 g/dL (32.0-36.0); MEAN CORPUSCULAR VOLUME 92.2 fL (81.0-99.0); MEAN PLATELET VOLUME 9.9 fL (7.9-10.8); MONOCYTES # (AUTO) 0.6 10^3/uL (0.0-1.0); MONOCYTES % (AUTO) 6.2 %; NEUTROPHILS # (AUTO) 7.5 10^3/uL (1.5-6.6); NEUTROPHILS % (AUTO) 74.4 %; PLT - PLATELET COUNT 272 10^3/uL (130-450); RED BLOOD COUNT 4.22 10^6/uL (4.20-5.40); RED CELL DISTRIBUTION WIDTH 12.9 % (12.0-15.0); WHITE BLOOD COUNT 10.1 x10^3/uL (4.8-10.8)
[2024-05-29] MEDS ORDERED: NALOXONE 0.4 MG/ML VIAL IVP PRN ×2 (07:58→10:39)
[2024-05-29] MEDS ORDERED: ONDANSETRON 4 MG/2 ML VIAL IVP PRN (07:58)
[2024-05-29] MEDS ORDERED: NALBUPHINE 10 MG/ML AMP IVP PRN (07:58)
[2024-05-29] MEDS ORDERED: ePHEDrine 50 MG/ML VIAL IVP PRN (07:58)
--- NOTE | 2024-05-29 07:58 | ANESTHESIA PROCEDURE NOTE ---
Pre-Anesthesia VS, & Labs Diagnosis Surgical Diagnosis:: active labor Procedure Procedure: vaginal delivery Vitals Vital Signs: Temp Pulse Resp BP 36.7 C 52 L 17 95/61 05/29/24 07:43 05/29/24 07:43 05/29/24 07:43 05/29/24 07:43 Height (in): 5 ft 2 in Weight (kg): 64 kg Body Mass Index: 25.8 BMI Classification: Overweight NPO Last Fluid Intake: clear liquids during labo Is Patient ?: Yes Comments:: patient in active labor currently 8cm dilated, second baby SROM Meds/Allgy Home Medications Ambulatory Orders Medication Instructions Recorded Confirmed prenat.vits,yin,efv-kayg-otcet tab PO 03/27/24 05/20/24 Allergies Allergies Allergy/AdvReac Type Severity Reaction Status Date / Time No Known Drug Allergies Allergy Verified 05/20/24 14:19 PFSH Medical History Medical History (Updated 04/15/24 @ 14:05 by Irene August MD) Hx of cold sores Family History Family History (Updated 03/27/24 @ 08:44 by Najma Reid MA) Uncle Diabetes Social History Social History (Updated 04/01/24 @ 12:07 by Ila Arellano MA) Smoking Status: Never smoker Relationship: Spouse ETOH Use: None Substance Use: denies use Anesthesia Exam (Expanded) Exam General: Alert, Oriented x3, Cooperative and Moderate distress Dental: WNL Mouth Openin Fingerbreadth Neck Mobility: Normal Mallampati classification: II Thyromental Distance: 4-6 cm Mental/Cognitive Status: Alert/Oriented X3 and Normal for patient Plan Plan Anesthesia Type: Spinal (Patient has had large cervical change in last 30 mins and is very uncomfortable. Will place spinal for rapid analgesia with expectation she will deliver in the next 1-2 hours.) Consent for Procedure(s) Verified and Reviewed: Yes Code Status: Attempt Resuscitation ASA Classification ASA classification: 2-Mild systemic disease Is this case an emergency?: No
[2024-05-29] MEDS ORDERED: LACTATED RINGERS 1,000 ML IV SCH (08:00)
[2024-05-29] MEDS ORDERED: SODIUM CHLORIDE FLUSH 0.9% 10 ML SYRINGE IVP SCH (08:00)
[2024-05-29 08:18] LABS: ALBUMIN 3.5 g/dL (3.2-5.5); ALBUMIN/GLOBULIN RATIO 0.9 (1.0-2.2); CALCIUM 9.1 mg/dL (8.5-10.3); CREATININE 0.7 mg/dL (0.6-1.3); POTASSIUM 3.9 mmol/L (3.5-4.5); TOTAL PROTEIN 7.4 g/dL (6.4-8.9)
[2024-05-29] MEDS: OXYTOCIN/SODIUM CHLORIDE 500 ML IV PRN (10:05)
[2024-05-29] MEDS ORDERED: SIMETHICONE CHEW 80 MG TABLET PO PRN (10:39)
[2024-05-29] MEDS ORDERED: diphenhydrAMINE 25 MG CAPSULE PO PRN (10:39)
[2024-05-29] MEDS ORDERED: LABETALOL 5 MG/1 ML 20 ML MDV IVP PRN (10:39)
[2024-05-29] MEDS: ACETAMINOPHEN 500 MG TABLET PO PRN (11:16)
[2024-05-29] MEDS: IBUPROFEN 600 MG TABLET PO PRN (11:17)
--- NOTE | 2024-05-29 11:24 | DELIVERY NOTE ---
Delivery Note Labor Labor: positive Spontaneous Infant Delivery Method Infant Delivery Method: positive Spontaneous vaginal delivery Presentation Presentation: positive Vertex and OA - occiput anterior Nuchal Cord Nuchal Cord: positive None Amniotic Fluid Description Amniotic Fluid Description: positive Clear Episiotomy Type Episiotomy Type: positive None Laceration Laceration: positive 1st degree (very small at vaginal opening. Irregularly healed after first delivery) Suture Suture Type: positive Vicryl (rapide ) Suture Size: positive 3-0 Delivery Outcome Delivery Date: 05/29/24 Delivery Time: 10:02 Delivery Outcome: positive Livebirth [place]: positive Placed in direct skin contact with mother, Stimulated and [place] used sex: positive Female Cord Cord: positive 3 vessels and Other (relatively short cord) Placenta Placenta: positive Intact, Spontaneous and Other (relatively small with a few calcifications. Cord insert about 3 cm from edge. otherwise appears normal. ) Estimated Blood Loss Estimated Blood Loss (in cc): 300 Delivery Comments (Free Text/Narrative) Delivery Comments (Free Text/Narrative): patient presents in labor. 8 cm. receives intrathecal injection. progresses well and is complete in about 1 hour. Pushed for 2 contractions to deliver her baby in OA position over intact perineum. Mother in law with her for support. son asleep on couch. FOB deployed. MIL did video. baby girl put up on her belly. cord was short. waited over 1 min to clamp it. PItocin started. placenta spontaneous. uterus contracted very well. no complications. baby girl vigorous from time of . small laceration at introitus. repaired with 3-0 Vicryl Rapide, pulling down the fascia under the skin to the perineal body to give her better support. long perineal body. rectum check done and no stitches. tolerated well.
[2024-05-29] MEDS: WITCH HAZEL/GLYCERIN 1 PAD TOP PRN (13:00)
[2024-05-29] MEDS: DOCUSATE SODIUM 100 MG CAPSULE PO SCH (21:44)
--- NOTE | 2024-05-30 08:26 | Discharge Summary ---
"Discharge Summary Admit Date: 05/29/24 Discharge Date: 05/30/24 Discharging Provider: Irene August MD Code Status: Attempt Resuscitation DIAGNOSES Admission Diagnoses: normal labor Discharge Diagnoses with Status of Each Condition: normal labor and delivery without complications HPI History of Present Illness: routine care for second baby. partner just deployed. came in in active labor. CONSULTS | PROCEDURES Procedures: vaginal delivery without complications HOSPITAL COURSE Hospital Course: presented in active labor at 39w2d, DOMI 06/03. received intrathecal injection. AROM [id number]. delivered about 2 hours later with easy 2nd stage at 1002. small laceration at introitus repaired. normal pp course. D/C PPD1 breast feeding. Baby girl 3184 gram, 18 1/4 in long, Apgars were 9/9. ALLERGIES Allergies Allergy/AdvReac Type Severity Reaction Status Date / Time No Known Drug Allergies Allergy Verified 05/20/24 14:19 MEDICATIONS Ambulatory Orders Medication Instructions Recorded Confirmed prenat.vits,yin,flb-lejk-setzw tab PO 03/27/24 05/20/24 docusate sodium 100 mg capsule 100 mg PO BID PRN Constipation #60 05/30/24 caps glycerin-witch taylor 12.5 %-50 % 1 pad topical PRN PRN Itching #30 05/30/24 topical pads (A.E.R. Witch Taylor) ea ibuprofen 600 mg tablet 600 mg PO Q6HR PRN Moderate Pain 05/30/24 (Level 4-6) #60 tabs PHYSICAL EXAM AT DISCHARGE General Appearance: positive No acute distress and Alert Respiratory: positive No respiratory distress Cardiovascular: positive Regular rate & rhythm Abdomen: positive Non-tender LABS 05/29/24 07:13 05/29/24 07:13 FOLLOW UP Follow Up: in clinic in 1-2 weeks TIME SPENT Time Spent in Discharge (Minutes): 30 Discharge Plan Discharge Patient Disposition: LONG-TERM, Self Care Condition: Good Prescriptions: New docusate sodium 100 mg Capsule 100 mg PO BID PRN (Reason: Constipation) Qty: 60 0RF ibuprofen 600 mg Tablet 600 mg PO Q6HR PRN (Reason: Moderate Pain (Level 4-6)) Qty: 60 0RF A.[employer]R. Witch Taylor 12.5-50 % Pads, Medicated 1 pad topical PRN PRN (Reason: Itching) Qty: 30 1RF Continued prenat.vits,yin,ksq-zeon-ubayz Tablet PO Activity Restrictions: pelvic rest for 6 weeks Diet: Regular Print Language: Cymro Patient Instructions: Vaginal, Follow-up Care: Irene August MD [Provider Admit Priv/Credential] - Gene Mariano MD [Primary Care Provider] -"
[2024-05-30 09:08] VITALS: O2SAT 98
--- NOTE | 2024-05-30 10:38 | PHARMACY PROGRESS NOTE ---
Best Possible Medication History Admit Date and Time: 05/29/24 [id number] Home Medications Medication Instructions Recorded Confirmed Type prenat.vits,yin,hiu-fsyl-hhgdr 1 tab PO DAILY 03/27/24 05/30/24 History docusate sodium 100 mg capsule 100 mg PO BID PRN Constipation #60 05/30/24 Rx caps glycerin-witch karolina 12.5 %-50 % 1 pad topical PRN PRN Itching #30 05/30/24 Rx topical pads (A[employer].R. Witch Karolina) ea ibuprofen 600 mg tablet 600 mg PO Q6HR PRN Moderate Pain 05/30/24 Rx (Level 4-6) #60 tabs Processed by: Pharmacy (Medication reconciliation completed by planetarium sky show technicianLilly) Medications reviewed in ED?: No Medication History completed: Yes Patient Interview: Completed Secondary Source(s): Insurance records [facility] Statement: As the person ultimately responsible for medication therapy, providers are able to order a medication from an existing home medication list in [facility] via the "Reconcile Routine" prior to Confirmation of that medication by instructional support technician. Such practice is discouraged except when the physician, in their clinical judgment, deems that a medical need exists for a medication without regard to pr evious use.
--- NOTE | 2024-05-30 14:43 | Labor Flowsheet ---
Labor Flowsheet Datetime Report Generated by CPN: 05/30/2024 14:42 Datetime: 05/30/2024 09:06 VITAL SIGNS NBP Sys/Rabia/Mean (mmHg): 114 : 65 : 78 Pulse: 77 LaborFlag: Labor Datetime: 05/29/2024 10:05 MEDICATIONS Medication Comments: PP Oxytocin 300ml/hr per MD Datetime: 05/29/2024 10:00 UTERINE ACTIVITY Monitor Mode: External Frequency (min): 1-3 Quality: Strong Duration (sec): 60-130 Pattern: Normal: <= 5 Contractions in 10 Minutes Resting Tone (Palpate): Relaxed ASSESSMENT A Monitor Mode: External US FHR Baseline Rate : 130 Variability: Moderate 6-25 bpm Accelerations: 15X15 Decelerations: Variable Category: Category II Datetime: 05/29/2024 09:56 COMMUNICATION Communication Comments: MD in room Datetime: 05/29/2024 09:55 Temperature (C): 36.8 Datetime: 05/29/2024 09:54 SpO2 (%): 99 Datetime: 05/29/2024 09:51 VAGINAL EXAM Dilatation (cm): 10.0 Effacement (%): 100 Station: 2 Patient Care Comments: trial push, great movement will call MD Datetime: 05/29/2024 09:00 FHR Baseline Changes: No Baseline Change Datetime: 05/29/2024 08:00 Oxygen Method: Room Air Datetime: 05/29/2024 07:54 Membrane Status: Meconium Membranes Rupture Method: Artificial Amniotic Fluid Color: Light Meconium Amniotic Fluid Amount: Moderate Datetime: 05/29/2024 07:25 Exam by: HCarter RN Datetime: 05/29/2024 07:12 PATIENT CARE IV/Blood Work: IV Started; Labs Drawn with IV Start Datetime: 05/29/2024 07:10 Patient Position/Activity: Left Lateral Datetime: 05/29/2024 07:06 Vaginal Bleeding: None Cervix, Consistency: Soft Cervix, Position: Midposition Datetime: 05/29/2024 07:03 Stage of : Labor
== END 2024-05-30 13:00 | disposition home or self-care (01) | DRG 807 ==
LOC: WFO 06:55 → FBP 06:57
PROVIDERS: ADMIT Obstetrics & Gynecology; ATTEND Obstetrics & Gynecology